=== PATIENT | male | born 1960 | race Two or more races ===

== ENCOUNTER → 2025-01-18 | Outpatient (CLI) | payer MEDICAID, SELFPAY ==
--- NOTE | 2025-01-18 09:47 | XR_ITS ---
EXAMINATION: Ankle, right 3 views . Technique: Ankle AP, oblique, lateral 3 views Date and time of exam: January 18, 2025 0950 hours INDICATIONS: Right ankle pain several years. FINDINGS: Lateral malleolar soft tissue swelling. No fracture No cortical bone destruction 3 mm plantar bony calcaneal spur IMPRESSION: No fracture or cortical bone destruction
--- NOTE | 2025-01-18 09:47 | XR_ITS ---
Examination: Foot, right, 3 views Technique: AP, oblique, lateral views foot, 3 views Date and time of exam: January 18, 2025 0950 hours INDICATIONS: Right foot pain several years. FINDINGS: Prominent bunion deformity Advanced osteoarthritis first metatarsophalangeal joint No acute fracture 3 mm plantar bony calcaneal spur IMPRESSION: Prominent bunion deformity Advanced osteoarthritis first metatarsophalangeal joint
== END | disposition home or self-care (01) ==
PROVIDERS: PCP Podiatrist; Referring Provider Podiatrist; Visit Provider Podiatrist
DX: M25.571 Pain in right ankle and joints of right foot (principal); M21.611 Bunion of right foot; M19.071 Primary osteoarthritis, right ankle and foot
CPT/HCPCS: 73610; 73630